=== PATIENT | female | born 1995 | race Caucasian/White ===

== ENCOUNTER 2024-12-30 14:59 | Emergency (ER) | payer OTHER, SELFPAY ==
[2024-12-30 14:59] VITALS: BP 144/102; PULSE 98; RESP 14; TEMP 36.6; O2SAT 98; BMI 20.3
--- NOTE | 2024-12-30 15:15 | EX.ED.DYSGE1 ---
HPI History of Present Illness Chief Complaint: Other, Pain/Inj Narrative Narrative: Patient is a 29-year-old female with no known significant past medical history who presents to the emergency department chief plaint neck pain. Patient states that she she woke up yesterday with soreness to her neck and notes that it have been progressively worsening. States that her mother gave her a muscle relaxer and ibuprofen earlier this morning and when she woke up again she states that she started to feel better. She notes that she lives with her mother, father and her sister and no one is ill. She denies any history of IV drug use denies any fevers or chills. Patient also notes that she has had a shoulder discomfort for years now and also feels that this may be flaring up. She states that she feels that her muscle near her right side of her neck is tight. States that she works at [email or web address] and does a lot of heavy lifting and feels that this may have exacerbated her symptoms. PFSH PFS Home Medications ?Medication ?Instructions ?Recorded ?Last Taken ?Type lidocaine 5 % topical patch 1 patch topical DAILY PRN pain 12/30/24 Unknown Rx (Tridacaine II) (scale score 4-6) #15 ea Allergy/AdvReac Type Severity Reaction Status Date / Time Sulfa (Sulfonamide Allergy HIVES Verified 12/30/24 15:00 Antibiotics) Social History Smoking Status: Never smoker ROS ROS ED ROS Narrative Constitutional: Denies any fevers, chills, headaches Eyes: Denies double vision Neck: Complains of neck pain as noted above Cardiovascular: Denies chest pain Respiratory: Denies shortness of breath Abdomen: Denies nausea vomit diarrhea : Denies any urinary symptoms Neurological: Denies any numbness, weakness, tingling Skin: Denies any rashes or lesions EXAM Physical Exam Narrative Exam Narrative: General: Patient is lying in bed rest comfortably did not appear to be in acute distress Head: Atraumatic, normocephalic Eyes: PERRL bilaterally, EOMI bilaterally, no conjunctival injection noted Neck: Soft, supple, trachea midline Cardiovascular: Regular rate and rhythm no murmurs gallops rubs noted Respiratory: Clear to auscultation bilaterally Abdomen: Soft, nondistended, no tenderness to palpation Musculoskeletal: Patient is able to look up down the left without any difficulty she states that she has mild pain when attempting to look right near her right trapezius region Extremities: Radial pulses +2/4 in the bilateral extremities, +5/5 strength noted in the bilateral lower extremities Neurological: Patient following commands knew that she was at [facility] the year is 2024 sensation grossly intact Skin: Warm, dry, tact no rashes or lesions noted no petechia no purpura no sloughing of skin noted Const Vital Signs: 12/30/24 14:59 12/30/24 14:59 Temperature 98 F Temperature Source Temporal Pulse Rate 98 Respiratory Rate 14 Respiratory Effort Normal Non-Labored Respiratory Pattern Normal Blood Pressure 144/102 H Blood Pressure Mean 116 Pulse Ox 98 Oxygen Delivery Method Room Air MDM MDM MDM Narrative Medical decision making narrative: Patient is a 29-year-old female who presented to the emergency department chief complaint neck pain. On the differential diagnose includes but not limited to musculoskeletal strain of the trapezius muscle, pathologic fracture of her cervical spine however have low suspicion for this, meningitis however have low suspicion for this clinically as well. Patient will be given IM Toradol and Norflex and be reevaluated. At this point time do not believe she warrants any further imaging as she had no trauma or injuries to her neck to warrant this. Her pain is reproducible over the right trapezius muscle. Reevaluation patient she states that she is feeling better however she is still having some pain will given a gram of Tylenol. States that she would like to go home at this point time. Patient was educated on stretching of her upper back/neck muscles and was advised to continue to rotate Tylenol ibuprofen [id number] as well as use the cyclobenzaprine as prescribed at home. She is encouraged to return with worsening symptoms or concerns. Patient be given a Lidoderm patch prescription as well. She is vies return with worsening symptoms or any concerns. I did offer to provide further workup such as blood work however after discussion with the patient and mother at bedside we discussed that we do not believe that this is warranted this is likely a muscle strain. Mother is agreeable to taking her home as well. All question concerns answered she was discharged home in stable condition. At 5:00 PM as I am discharging the patient the nurse came to me and notified me that the patient's mother stepped out of the room and was requesting a stronger pain medication than Tylenol such as tramadol as she is worried that she needs something stronger for pain and states that her daughter does not advocate enough for herself. After discussion I told her that I will not write a prescription for narcotic to go home however we will give her a one-time dose here in the emergency department she will be given [place] and Zofran. We will stick to the original plan as noted above. Discharge Plan Triage Chief Complaint: Other, Pain/Inj ED Provider: Garcia Castillo Dx/Rx/DC Orders Clinical Impression: Neck pain, Musculoskeletal strain Prescriptions: New lidocaine [Tridacaine II] 5 % adhesive patch,medicated 1 patch topical DAILY PRN (Reason: pain (scale score 4-6)) Qty: 15 0RF Rx Instructions: leave on most painful area for up to 12 hrs Primary Care Provider: Care Physician,No Primary Referrals: Care Physician,No Primary [Primary Care Provider, Medical] Activity Restrictions/Additional Instructions: Rotate Tylenol and ibuprofen [id number] when you do this you can take something every 3 hours for pain max dose Tylenol in 24 hours 4000 mg max dose of ibuprofen in 24 hours 3200 mg. Use the muscle laxer as prescribed do not operate anything under the influence of this as this will make you sleepy drowsy. Use the Lidoderm patch as prescribed. Follow-up your doctor in the outpatient setting and return with worsening symptoms or other concerns Print Language: [place] Disposition Disposition: Home, Self Care
[2024-12-30] MEDS: Orphenadrine 60 MG/2 ML Ampul 30 MG IM (15:28)
[2024-12-30] MEDS: Ketorolac 30 MG/ML Syringe IM (15:28)
[2024-12-30] MEDS: HYDROcodone Bitartrate/Apap 5/325 Tablet PO (17:37)
[2024-12-30 17:42] VITALS: BP 128/84; PULSE 89; RESP 16; TEMP 36.9; O2SAT 99
== END 2024-12-30 17:43 | disposition home or self-care (01) ==
PROVIDERS: Emergency Provider Emergency Medicine; Visit Provider Emergency Medicine
DX: S16.1XXA Strain of muscle, fascia and tendon at neck level, initial encounter (principal); X58.XXXA Exposure to other specified factors, initial encounter
CPT/HCPCS: 96372; 99283